=== PATIENT | male | born 1955 | race Caucasian/White ===

== ENCOUNTER 2018-10-26 10:42 | Day surgery (SDC) | payer OTHER ==
[~2018-10-26] VITALS: Ht 180.3 cm; Wt 96.2 kg
[~2018-10-26 10:42] MED LIST: CLON.5 PO; TAMS.4ER PO
== END 2018-10-26 14:09 | disposition home or self-care (01) ==
LOC: ORSCSDS 10:42
PROVIDERS: Orthopaedic Surgery
PROC: 0RBX0ZZ Excision of Left Finger Phalangeal Joint, Open Approach (ICD-10-PCS; principal; 2018-10-26 11:45)
DX: M67.442 Ganglion, left hand (principal); Z79.899 Other long term (current) drug therapy
CPT/HCPCS: 88304; J0690; J1885; J3010; J7120

== ENCOUNTER → 2021-11-16 | Outpatient (CLI) | payer MEDICARE | END | disposition home or self-care (01) | LOC: LAB SHORT 11:07 | DX: L98.0 Pyogenic granuloma (principal) | CPT/HCPCS: 88305 ==